=== PATIENT | female | born 1960 | race Caucasian/White ===

== ENCOUNTER 2016-02-08 20:58 | Emergency (ER) | payer OTHER ==
[~2016-02-08] VITALS: Ht 167.6 cm; Wt 53.0 kg
[2016-02-08 21:02] VITALS: BP 131/74; PULSE 72; RESP 16; TEMP 98; O2SAT 97
[2016-02-08] MEDS: ORPHENADRINE INJ 60 MG/2 ML AMP IM ONE ×2 (21:30→21:44)
[2016-02-08] MEDS: KETOROLAC TROMETHAMINE 60 MG/2 ML (IM) VIAL IM ONE ×2 (21:30→21:45)
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
[2016-02-08] MEDS ORDERED: IBUP800T23 PO (22:36)
[2016-02-08] MEDS ORDERED: BACL10TA PO (22:36)
== END 2016-02-08 22:59 | disposition home or self-care (01) ==
LOC: NEPB 20:58
DX: S16.1XXA Strain of muscle, fascia and tendon at neck level, initial encounter (principal); V43.52XA Car driver injured in collision with other type car in traffic accident, initial encounter; Y93.9 Activity, unspecified; Y92.9 Unspecified place or not applicable; Y99.9 Unspecified external cause status
CPT/HCPCS: 72125; J1885; J2360